=== PATIENT | male | born 2000 | race Hispanic/Latino ===

== ENCOUNTER 2019-11-15 01:10 | Emergency (ER) | payer MEDICAID, SELFPAY ==
[2019-11-15] MEDS ORDERED: IPRATROPIUM BROM 0.5MG/2.5ML ONE (01:29)
[2019-11-15] MEDS ORDERED: ALBUTEROL 2.5 MG/3 ML NEB SOL ONE (01:29)
[2019-11-15] MEDS ORDERED: predniSONE 20 MG TAB ONE (01:44)
--- NOTE | 2019-11-15 02:43 | ER ---
Nurse's Notes [facility] Name: Kole Villela Age: 19 yrs Sex: Male : 2000 Arrival Date: 11/15/2019 Time: 01:12 Bed 19 Private MD: Diagnosis: Unspecified asthma with (acute) exacerbation Presentation: 11/15 01:15 Presenting complaint: Patient states: that he has been having a cough, SOB and wheezing fc x 3 days. Tonight it got really bad. Transition of care: patient was not received from another setting of care. Onset of symptoms was November 12, 2019. Risk Assessment: Do you want to hurt yourself or someone else? Patient reports no desire to harm self or others. Initial Sepsis Screen: Does the patient meet any 2 criteria? No. Patient's initial sepsis screen is negative. Does the patient have a suspected source of infection? No. Patient's initial sepsis screen is negative. Care prior to arrival: None. 01:15 Method Of Arrival: Ambulatory 01:15 Acuity: STEPHANIE 3 Triage Assessment: 01:15 General: Appears distressed, slender, Behavior is calm, cooperative, appropriate for age. Pain: Denies pain. EENT: Reports nasal congestion. Neuro: Level of Consciousness is awake, alert, obeys commands, Oriented to person, place, time, situation, Appropriate for age. Cardiovascular: No deficits noted. Respiratory: Reports shortness of breath cough that is productive, Airway is patent Respiratory effort is even, unlabored, Respiratory pattern is regular, symmetrical, Breath sounds with wheezes bilaterally. Onset: The symptoms/episode began/occurred gradually, the patient has moderate shortness of breath. GI: No deficits noted. : No deficits noted. Derm: Skin is pink, warm \T\ dry. Musculoskeletal: Capillary refill < 3 seconds. Historical: - Allergies: 01:36 Iodine; fc - Home Meds: :36 Unable to obtain [Active]; fc - PMHx: 01:36 Asthma; Bipolar disorder; Anxiety; Eczema; - PSHx: 01:36 None; fc - Immunization history:: Last tetanus immunization: unknown, Flu vaccine is not up to date. - Coronavirus screen:: The patient has NOT traveled to [place] in the past 14 days. Proceed with normal triage process as indicated. The patient has NOT had contact with known/suspected case of Coronavirus? Proceed with normal triage procedures. - Social history:: Smoking status: Patient denies any tobacco usage or history of. Patient uses street drugs, marijuana, Patient/guardian denies using alcohol. - Ebola Screening: : Patient negative for fever greater than or equal to 101.5 degrees Fahrenheit, and additional compatible Ebola Virus Disease symptoms Patient denies exposure to infectious person Patient denies travel to an Ebola-affected area in the 21 days before illness onset. Screenin:15 Abuse screen: Denies threats or abuse. Nutritional screening: No deficits noted. fc Tuberculosis screening: No symptoms or risk factors identified. Fall Risk None identified. Assessment: 01:47 General: Appears in no apparent distress. comfortable, Behavior is calm, cooperative. mg2 Pain: Denies pain. Neuro: Level of Consciousness is awake, alert, obeys commands, Oriented to person, place, time, situation. Cardiovascular: Rhythm is regular. Respiratory: Airway is patent Respiratory effort is even, unlabored, Respiratory pattern is regular, symmetrical, Breath sounds with wheezes bilaterally. in left posterior upper lobe, right posterior upper lobe, left posterior lower lobe, right posterior middle lobe and right posterior lower lobe. GI: No signs and/or symptoms were reported involving the gastrointestinal system. : No signs and/or symptoms were reported regarding the genitourinary system. EENT: No signs and/or symptoms were reported regarding the EENT system. Derm: Skin is intact, is healthy with good turgor, Skin is pink, warm \T\ dry. normal. Musculoskeletal: Circulation, motion, and sensation intact. Capillary refill < 3 seconds. Vital Signs: 01:15 BP 127 / 83; Pulse 74; Resp 20; Temp 98.2(O); Pulse Ox 98% on R/A; Weight 81.65 kg (R); fc Height 5 ft. 3 in. (160.02 cm) (R); Pain 0/10; 02:51 BP 125 / 78; Pulse 85; Resp 18; Temp 98.2; Pulse Ox 100% on R/A; mg2 01:15 Body Mass Index 31.89 (81.65 kg, 160.02 cm) ED Course: 01:12 Patient arrived in ED. ds1 01:15 Arm band placed on Patient placed in an exam room, on a stretcher. fc 01:15 Patient has correct armband on for positive identification. Bed in low position. Call light in reach. Pulse ox on. NIBP on. 01:15 No provider procedures requiring assistance completed. fc 01:16 Carlton Muñiz PA is PHCP. cp 01:16 oNah Rose MD is Attending Physician. cp 01:26 King Dong, RIC is Primary Nurse. mg2 01:29 Triage completed. fc 01:47 Flu and/or RSV swab sent to lab. Patient did not have IV access during this emergency mg2 room visit. 02:22 XRAY Chest Pa And Lat (2 Views) In Process Unspecified. EDMS Administered Medications: 01:26 Drug: Albuterol - atroVENT (3:1) (2.5 mg - 0.5 mg) 3 ml Route: Nebulizer; fc 02:51 Follow up: Response: No adverse reaction; Marked relief of symptoms mg2 01:46 Drug: predniSONE 60 mg Route: PO; mg2 02:51 Follow up: Response: No adverse reaction; Marked relief of symptoms mg2 Outcome: 02:42 Discharge ordered by MD. cp 02:52 Discharged to home ambulatory, with family. mg2 02:52 Condition: stable 02:52 Discharge instructions given to patient, family, Instructed on discharge instructions, follow up and referral plans. medication usage, Demonstrated understanding of instructions, follow-up care, medications, Prescriptions given X 2. 02:52 Patient left the ED. mg2 Signatures: Dispatcher [employer] EDMS Rubi Herbert RN RN Laxmi Tanner ds1 Carlton Muñiz PA PA cp King Dong, RN RN mg2 Corrections: (The following items were deleted from the chart) 01:33 01:32 Albuterol - atroVENT (3:1) (2.5 mg - 0.5 mg) 3 ml Nebulizer mg2 fc
--- NOTE | 2019-11-15 02:44 | EDPHYS ---
Physician Documentation [facility] Name: Kole Villela Age: 19 yrs Sex: Male : 2000 Arrival Date: 11/15/2019 Time: 01:12 Bed 19 Private MD: ED Physician Noah Rose HPI: 11/15 01:35 This 19 yrs old Male presents to ER via Ambulatory with complaints of cp Breathing Difficulty. 01:35 The patient has shortness of breath at rest. Onset: The symptoms/episode began/occurred cp 3 day(s) ago. Duration: The symptoms are continuous, and are steadily getting worse. Associated signs and symptoms: Pertinent positives: productive cough, Pertinent negatives: chest pain, fever, vomiting. Severity of symptoms: in the emergency department the symptoms are unchanged despite home interventions. Historical: - Allergies: 01:36 Iodine; fc - Home Meds: 01:36 Unable to obtain [Active]; fc - PMHx: 01:36 Asthma; Bipolar disorder; Anxiety; Eczema; fc - PSHx: 01:36 None; fc - Immunization history:: Last tetanus immunization: unknown, Flu vaccine is not up to date. - Coronavirus screen:: The patient has NOT traveled to [place] in the past 14 days. Proceed with normal triage process as indicated. The patient has NOT had contact with known/suspected case of Coronavirus? Proceed with normal triage procedures. - Social history:: Smoking status: Patient denies any tobacco usage or history of. Patient uses street drugs, marijuana, Patient/guardian denies using alcohol. - Ebola Screening: : Patient negative for fever greater than or equal to 101.5 degrees Fahrenheit, and additional compatible Ebola Virus Disease symptoms Patient denies exposure to infectious person Patient denies travel to an Ebola-affected area in the 21 days before illness onset. ROS: 01:40 Constitutional: Negative for body aches, chills, fever, poor PO intake. cp 01:40 Eyes: Negative for injury, pain, redness, and discharge. cp 01:40 ENT: Negative for drainage from ear(s), ear pain, sore throat, difficulty swallowing, difficulty handling secretions. 01:40 Respiratory: Positive for cough, with green sputum, shortness of breath, at rest. wheezing. 01:40 Abdomen/GI: Negative for abdominal pain, nausea, vomiting, and diarrhea. 01:40 Back: Negative for radiated pain. 01:40 Skin: Negative for rash. 01:40 Neuro: Negative for altered mental status, headache, weakness. 01:40 All other systems are negative. Exam: 01:45 Constitutional: The patient appears in no acute distress, alert, awake, non-toxic, well cp developed, well nourished. 01:45 Head/Face: Normocephalic, atraumatic. cp 01:45 Eyes: Periorbital structures: appear normal, Conjunctiva: normal, no exudate, no injection, Lids and lashes: appear normal, bilaterally. 01:45 ENT: External ear(s): are unremarkable, Ear canal(s): are normal, clear, TM's: bulging, is not appreciated, bilaterally, erythema, is not appreciated, bilaterally, Nose: is normal, Mouth: Lips: moist, Oral mucosa: pink and intact, moist, Posterior pharynx: is normal, airway is patent, no erythema, no exudate. 01:45 Neck: ROM/movement: is normal, is supple, without pain, no range of motions limitations, no meningismus. 01:45 Chest/axilla: Inspection: normal, Palpation: is normal, no crepitus, no tenderness. 01:45 Cardiovascular: Rate: normal, Rhythm: regular, Edema: is not appreciated, JVD: is not appreciated. 01:45 Respiratory: the patient does not display signs of respiratory distress, Respirations: normal, no use of accessory muscles, no retractions, labored breathing, is not present, Breath sounds: decreased breath sounds, that are mild, diffuse, stridor, is not appreciated, wheezing: that is mild, is heard diffusely. 01:45 Abdomen/GI: Exam negative for discomfort, distension, guarding, Inspection: abdomen appears normal. 01:45 Skin: no rash present. Vital Signs: 01:15 BP 127 / 83; Pulse 74; Resp 20; Temp 98.2(O); Pulse Ox 98% on R/A; Weight 81.65 kg (R); fc Height 5 ft. 3 in. (160.02 cm) (R); Pain 0/10; 02:51 BP 125 / 78; Pulse 85; Resp 18; Temp 98.2; Pulse Ox 100% on R/A; mg2 01:15 Body Mass Index 31.89 (81.65 kg, 160.02 cm) MDM: 01:20 Patient medically screened. 02:33 Data reviewed: vital signs, nurses notes, lab test result(s), radiologic studies, plain cp films. Test interpretation: by ED physician or midlevel provider: plain radiologic studies, chest xray negative for infiltrates. 11/15 01:31 Order name: Influenza Screen (a \T\ B) cp 11/15 01:31 Order name: XRAY Chest Pa And Lat (2 Views) cp Administered Medications: Drug: Albuterol - atroVENT (3:1) (2.5 mg - 0.5 mg) 3 ml Route: Nebulizer; 02:51 Follow up: Response: No adverse reaction; Marked relief of symptoms mg2 01:46 Drug: predniSONE 60 mg Route: PO; mg2 02:51 Follow up: Response: No adverse reaction; Marked relief of symptoms mg2 Disposition: 03:32 Co-signature as Attending Physician, Noah Rose MD. rn Disposition: 11/15/19 02:42 Discharged to Home. Impression: Unspecified asthma with (acute) exacerbation. - Condition is Stable. - Discharge Instructions: Asthma, Adult, How to Use an Inhaler. - Prescriptions for Prednisone 20 mg Oral Tablet - take 2 tablet by ORAL route once daily for 5 days; 10 tablet. Albuterol Sulfate 90 mcg/actuation - inhale 1-2 puff by INHALATION route every 4-6 hours; 1 Inhaler. - Medication Reconciliation Form, Thank You Letter, Antibiotic Education, Prescription Opioid Use form. - Follow up: Private Physician; When: 1 - 2 days; Reason: Recheck today's complaints. - Problem is an acute exacerbation. - Symptoms have improved. Signatures: Dispatcher [employer] EDRubi Mann RN RN Noah Rose MD MD rn Page, Corey, PA PA cp Gardose, Michele, RN RN mg2 Corrections: (The following items were deleted from the chart) 02:52 02:42 11/15/2019 02:42 Discharged to Home. Impression: Unspecified asthma with (acute) mg2 exacerbation. Condition is Stable. Forms are Medication Reconciliation Form, Thank You Letter, Antibiotic Education, Prescription Opioid Use. Follow up: Private Physician; When: 1 - 2 days; Reason: Recheck today's complaints. Problem is an acute exacerbation. Symptoms have improved. cp
[2019-11-15 04:57] VITALS: TEMP 98.2
[2019-11-15 04:59] VITALS: BP 125/78; O2SAT 100
--- NOTE | 2019-11-15 07:49 | RAD REPORT ---
EXAM DESCRIPTION: RAD - Chest Pa And Lat (2 Views) - 11/15/2019 2:22 am CLINICAL HISTORY: Cough;SOB COMPARISON: CHEST PA AND LAT 2 VIEW dated 08/02/2013; CHEST PA AND LAT 2 VIEW dated 01/05/2010 TECHNIQUE: Frontal and lateral views of the chest were obtained. FINDINGS: The lungs are clear of a focal mass or consolidation. Interstitial pattern is not substant ially different from comparison. A mild edema or infiltrate is potentially masked by the baseline pat tern. Heart size is normal and central vasculature is within normal limits. No pleural effusion or pneumothorax seen. No acute bony finding noted. No aortic abnormality. IMPRESSION: No focal mass or consolidation. Minimal edema or infiltrate can be masked by the baseline pattern.
== END 2019-11-15 02:52 | disposition home or self-care (01) ==
LOC: ER 01:10
DX: J45.901 Unspecified asthma with (acute) exacerbation (principal); Z91.048 Other nonmedicinal substance allergy status
CPT/HCPCS: 71046; 87804; 94640; 99284; J7512

== ENCOUNTER 2021-02-25 12:16 | Emergency (ER) | payer SELFPAY ==
[2021-02-25] MEDS ORDERED: ALBUTEROL 2.5 MG/3 ML NEB SOL ONE (13:07)
[2021-02-25] MEDS ORDERED: IPRATROPIUM BROM 0.5MG/2.5ML ONE (13:07)
[2021-02-25] MEDS ORDERED: KETOROLAC 30 MG/ML INJ ONE (13:07)
[2021-02-25] MEDS ORDERED: METHYLPREDNISOLONE 125 MG INJ ONE (13:07)
[2021-02-25 13:11] LABS: Absolute Lymphocytes (CBC) 1.8 K/uL (0.7-4.9); Basophils % 0.5 % (0-1.3); Hematocrit 44.9 % (39.6-49.0); Lymphocytes % 16.5 % (15.3-44.8); MPV 9.2 fL (7.6-11.3); RBC Red Blood Cell Count 5.47 M/uL (4.33-5.43)
[2021-02-25 13:33] LABS: ALT/SGPT 32 U/L (12-78); AST/SGOT 30 U/L (15-37); Albumin 4.2 g/dL (3.4-5.0); Alkaline Phosphatase 128 U/L (45-117); BUN Blood Urea Nitrogen 18 mg/dL (7-18); Bicarbonate 25 mmol/L (21-32); Bilirubin Direct 0.1 mg/dL (0-0.2); Bilirubin Total 0.4 mg/dL (0.2-1.0); Glucose Level 85 mg/dL (74-106); Potassium 3.9 mmol/L (3.5-5.1); Protein, Total 8.5 g/dL (6.4-8.2); Sodium Level 135 mmol/L (136-145); Troponin (Emerg Dept Use Only) < 0.02 ng/mL (0.0-0.045)
--- NOTE | 2021-02-25 13:37 | RAD REPORT ---
EXAM DESCRIPTION: Angela Warner (2 Views)02/25/2021 1:11 pm CLINICAL HISTORY: Chest pain COMPARISON: 2019 FINDINGS: The lungs appear clear of acute infiltrate. The heart is normal size IMPRESSION: No acute abnormalities displayed
--- NOTE | 2021-02-25 15:15 | EDPHYS ---
Physician Documentation [facility] Name: Kole Villela Age: 20 yrs Sex: Male : 2000 Arrival Date: 02/25/2021 Time: 12:16 Bed 28 Private MD: Faby Corbett C ED Physician Noah Rose HPI: 02/25 12:59 This 20 yrs old Male presents to ER via Ambulatory with complaints of Chest pm1 Pressure, Syncope. 12:59 The patient or guardian reports chest pain that is located primarily in the left pm1 lateral posterior chest and left breast. The pain does not radiate. Associated signs and symptoms: Pertinent positives: shortness of breath, Wheezing, Pertinent negatives: headache. The chest pain is described as sharp. Duration: The patient or guardian reports a single episode, that is still ongoing. Modifying factors: The symptoms are alleviated by breathing treatments. the symptoms are aggravated by deep breath. Severity of pain: in the emergency department the pain is unchanged. The patient has not experienced similar symptoms in the past. The patient has not recently seen a physician. Historical: - Allergies: 12:38 Iodine; ph - PMHx: 12:38 Anxiety; Asthma; Bipolar disorder; eczema; ph - PSHx: 12:38 None; ph - Immunization history:: Client reports having NOT received the Covid vaccine. - Social history:: Smoking status: Reported history of juuling and/or vaping. ROS: 12:59 Constitutional: Negative for fever, chills, and weight loss, Eyes: Negative for injury, pm1 pain, redness, and discharge, ENT: Negative for injury, pain, and discharge, Neck: Negative for injury, pain, and swelling. 12:59 Abdomen/GI: Negative for abdominal pain, nausea, vomiting, diarrhea, and constipation, Back: Negative for injury and pain, MS/Extremity: Negative for injury and deformity, Skin: Negative for injury, rash, and discoloration. 12:59 Cardiovascular: Positive for chest pain, of the left breast and left lateral posterior chest, Negative for edema, palpitations. 12:59 Respiratory: Positive for shortness of breath, wheezing, Negative for cough. 12:59 Neuro: Positive for near syncope, Negative for dizziness, headache, numbness, tingling, weakness. Exam: 12:59 Constitutional: This is a well developed, well nourished patient who is awake, alert, pm1 and in no acute distress. Head/Face: Normocephalic, atraumatic. 12:59 Back: No spinal tenderness. No costovertebral tenderness. Full range of motion. Skin: Warm, dry with normal turgor. Normal color with no rashes, no lesions, and no evidence of cellulitis. MS/ Extremity: Pulses equal, no cyanosis. Neurovascular intact. Full, normal range of motion. 12:59 Eyes: Exam is negative for acute changes, Extraocular movements: no acute changes, Sclera: no acute changes, icterus, is not appreciated. 12:59 ENT: Mouth: Lips: normal, Oral mucosa: normal, pink and intact, moist. 12:59 Chest/axilla: Inspection: normal, Palpation: tenderness, that is mild, of the left lateral posterior chest and left breast, that totally reproduces the patient's complaints. 12:59 Cardiovascular: Rate: normal, Rhythm: regular, Pulses: no pulse deficits are appreciated. 12:59 Respiratory: the patient does not display signs of respiratory distress, Breath sounds: wheezing: expiratory that is mild, is heard diffusely. 12:59 Abdomen/GI: Inspection: abdomen appears normal, Palpation: abdomen is soft and non-tender, in all quadrants. 12:59 Neuro: Exam negative for acute changes, Orientation: is normal, Mentation: is normal, Motor: is normal, moves all fours. Vital Signs: 12:33 BP 127 / 86; Pulse 95; Resp 20; Temp 97.7; Pulse Ox 97% on R/A; Weight 89.81 kg; Height ph 5 ft. 11 in. (180.34 cm); Pain 7/10; 13:27 BP 122 / 74; Pulse 84; Resp 17; Pulse Ox 99% on R/A; ap3 14:09 BP 125 / 92; Pulse 89; Pulse Ox 100% on R/A; ap3 15:13 BP 122 / 72; Pulse 86; Resp 16; Pulse Ox 98% on R/A; Pain 0/10; ap3 12:33 Body Mass Index 27.62 (89.81 kg, 180.34 cm) ph MDM: 12:34 Patient medically screened. pm1 15:14 Data reviewed: vital signs. Data interpreted: Pulse oximetry: on room air is 98 %. pm1 Interpretation: normal. Counseling: I had a detailed discussion with the patient and/or guardian regarding: the historical points, exam findings, and any diagnostic results supporting the discharge/admit diagnosis, lab results, radiology results, the need for outpatient follow up, to return to the emergency department if symptoms worsen or persist or if there are any questions or concerns that arise at home. 02/25 12:37 Order name: Basic Metabolic Panel; Complete Time: 13:46 pm1 02/25 12:37 Order name: CBC with Diff; Complete Time: 13:27 pm02/25 12:37 Order name: Chest Pa And Lat (2 Views) XRAY; Complete Time: 13:46 pm1 02/25 12:37 Order name: LFT's; Complete Time: 13:46 pm02/25 12:37 Order name: Troponin (emerg Dept Use Only); Complete Time: 13:46 pm1 02/25 12:37 Order name: Cardiac monitoring; Complete Time: 12:43 pm02/25 12:37 Order name: EKG; Complete Time: 12:38 pm02/25 12:37 Order name: EKG - Nurse/Tech; Complete Time: 12:43 pm1 02/25 12:37 Order name: IV Saline Lock; Complete Time: 13:02 pm02/25 12:37 Order name: Labs collected and sent; Complete Time: 13:02 pm08 12:37 Order name: O2 Per Protocol; Complete Time: 12:42 pm02/25 12:37 Order name: O2 Sat Monitoring; Complete Time: 12:42 pm1 Administered Medications: 13:02 Drug: SOLU-Medrol (methylPrednisoLONE) 125 mg Route: IVP; Site: left antecubital; ap3 15:13 Follow up: Response: No adverse reaction ap3 13:02 Drug: Albuterol - atroVENT (ipratropium) (3:1) (2.5 mg - 0.5 mg) 3 ml Route: Nebulizer; ap3 15:12 Follow up: Response: No adverse reaction ap3 13:02 Drug: TORadol (ketorolac) 30 mg Route: IVP; Site: left antecubital; ap3 15:12 Follow up: Response: No adverse reaction; Pain is decreased ap3 15:12 Drug: NS 0.9% 1000 ml Route: IV; Rate: 1000 ml; Site: left antecubital; ap3 15:48 Follow up: Response: No adverse reaction; IV Status: Completed infusion; IV Intake: ap3 1000ml Disposition: 18:11 Co-signature as Attending Physician, Noah Rose MD. rn Disposition: 02/25/21 15:15 Discharged to Home. Impression: Chest pain, unspecified, Asthma. - Condition is Stable. - Discharge Instructions: Asthma, Adult, Nonspecific Chest Pain. - Prescriptions for Naprosyn 500 mg Oral Tablet - take 1 tablet by ORAL route 2 times per day As needed take with food; 30 tablet. Medrol (Ruben) 4 mg Oral Tablets, Dose Pack - take 1 tablet by ORAL route as directed - follow package instructions; 1 packet. - Medication Reconciliation Form, Thank You Letter, Antibiotic Education, Prescription Opioid Use, Work release form form. - Follow up: Emergency Department; When: As needed; Reason: Worsening of condition. Follow up: Private Physician; When: 2 - 3 days; Reason: Recheck today's complaints, Continuance of care, Re-evaluation by your physician. - Problem is new. - Symptoms have improved. Signatures: Dispatcher [employer] EDNoah Lopez MD MD rn Hall, Patricia, RN RN ph Marinas, Patrick, NP [employer] pm1 Gracie Godinez RN RN ap3 Corrections: (The following items were deleted from the chart) 15:32 15:15 02/25/2021 15:15 Discharged to Home. Impression: Chest pain, unspecified. pm1 Condition is Stable. Forms are Medication Reconciliation Form, Thank You Letter, Antibiotic Education, Prescription Opioid Use. Follow up: Emergency Department; When: As needed; Reason: Worsening of condition. Follow up: Private Physician; When: 2 - 3 days; Reason: Recheck today's complaints, Continuance of care, Re-evaluation by your physician. Problem is new. Symptoms have improved. pm1 15:47 15:32 02/25/2021 15:15 Discharged to Home. Impression: Chest pain, unspecified; Asthma. ap3 Condition is Stable. Discharge Instructions: Nonspecific Chest Pain, Asthma, Adult. Prescriptions for Naprosyn 500 mg Oral Tablet - take 1 tablet by ORAL route 2 times per day As needed take with food; 30 tablet, Medrol (Ruben) 4 mg Oral Tablets, Dose Pack - take 1 tablet by ORAL route as directed - follow package instructions; 1 packet. and Forms are Medication Reconciliation Form, Thank You Letter, Antibiotic Education, Prescription Opioid Use. Follow up: Emergency Department; When: As needed; Reason: Worsening of condition. Follow up: Private Physician; When: 2 - 3 days; Reason: Recheck today's complaints, Continuance of care, Re-evaluation by your physician. Problem is new. Symptoms have improved. pm1
--- NOTE | 2021-02-25 15:15 | ER ---
Nurse's Notes [facility] Name: Kole Villela Age: 20 yrs Sex: Male : 2000 Arrival Date: 02/25/2021 Time: 12:16 Bed 28 Private MD: Faby Corbett C Diagnosis: Chest pain, unspecified;Asthma Presentation: 02/25 12:33 Chief complaint: Patient states: SOB this morning, hx of asthma, used inhaler and ph symptoms improved, works outdoors and while working today experienced mid-sternal chest pain that radiates to L rib area w/ respiration. States, " While I was at work I got dizzy and almost passed out because the pain was so sharp." Denies N/V or fever. Coronavirus screen: shortness of breath. Ebola Screen: No symptoms or risks identified at this time. Initial Sepsis Screen: Does the patient meet any 2 criteria? No. Patient's initial sepsis screen is negative. Does the patient have a suspected source of infection? No. Patient's initial sepsis screen is negative. Risk Assessment: Do you want to hurt yourself or someone else? Patient reports no desire to harm self or others. Onset of symptoms was February 25, 2021. 12:33 Method Of Arrival: Ambulatory ph 12:33 Acuity: STEPHANIE 3 ph Historical: - Allergies: 12:38 Iodine; ph - PMHx: 12:38 Anxiety; Asthma; Bipolar disorder; eczema; ph - PSHx: 12:38 None; ph - Immunization history:: Client reports having NOT received the Covid vaccine. - Social history:: Smoking status: Reported history of juuling and/or vaping. Screenin:04 Abuse screen: Denies threats or abuse. Nutritional screening: No deficits noted. ap3 Tuberculosis screening: No symptoms or risk factors identified. Fall Risk None identified. Assessment: 13:03 General: Appears in no apparent distress. comfortable, Behavior is calm, cooperative, ap3 appropriate for age. Pain: Complains of pain in mid-sternal area Pain does not radiate. Pain currently is 4 out of 10 on a pain scale. Pain began 2-3 days ago. Neuro: Level of Consciousness is awake, alert, obeys commands, Oriented to person, place, time, situation. Cardiovascular: Reports chest pain, Capillary refill < 3 seconds. Respiratory: Airway is patent Respiratory effort is even, unlabored, Respiratory pattern is regular, symmetrical, Breath sounds are clear bilaterally. GI: No signs and/or symptoms were reported involving the gastrointestinal system. : No signs and/or symptoms were reported regarding the genitourinary system. Vital Signs: 12:33 BP 127 / 86; Pulse 95; Resp 20; Temp 97.7; Pulse Ox 97% on R/A; Weight 89.81 kg; Height ph 5 ft. 11 in. (180.34 cm); Pain 7/10; 13:27 BP 122 / 74; Pulse 84; Resp 17; Pulse Ox 99% on R/A; ap3 14:09 BP 125 / 92; Pulse 89; Pulse Ox 100% on R/A; ap3 15:13 BP 122 / 72; Pulse 86; Resp 16; Pulse Ox 98% on R/A; Pain 0/10; ap3 12:33 Body Mass Index 27.62 (89.81 kg, 180.34 cm) ph ED Course: 12:16 Patient arrived in ED. am2 12:17 Faby Corbett FNP is Private Physician. am2 12:25 Raulito Romero NP is PHCP. pm1 12:25 Noah Rose MD is Attending Physician. pm1 12:30 Arm band placed on Patient placed in an exam room, on a stretcher. ll1 12:36 Gracie Godinez, RIC is Primary Nurse. ap3 12:38 Triage completed. ph 12:55 Inserted saline lock: 20 gauge in left antecubital area, using aseptic technique. Blood ap3 collected. 13:04 Patient has correct armband on for positive identification. Bed in low position. Call ap3 light in reach. Side rails up X 1. Adult w/ patient. environmental monitoring specialist on. Pulse ox on. NIBP on. Door closed. Noise minimized. 13:04 Patient maintains SpO2 saturation greater than 95% on room air. ap3 13:11 Chest Pa And Lat (2 Views) XRAY In Process Unspecified. EDMS 15:45 No provider procedures requiring assistance completed. IV discontinued, intact, ap3 bleeding controlled, No redness/swelling at site. Pressure dressing applied. Administered Medications: 13:02 Drug: SOLU-Medrol (methylPrednisoLONE) 125 mg Route: IVP; Site: left antecubital; ap3 15:13 Follow up: Response: No adverse reaction ap3 13:02 Drug: Albuterol - atroVENT (ipratropium) (3:1) (2.5 mg - 0.5 mg) 3 ml Route: Nebulizer; ap3 15:12 Follow up: Response: No adverse reaction ap3 13:02 Drug: TORadol (ketorolac) 30 mg Route: IVP; Site: left antecubital; ap3 15:12 Follow up: Response: No adverse reaction; Pain is decreased ap3 15:12 Drug: NS 0.9% 1000 ml Route: IV; Rate: 1000 ml; Site: left antecubital; ap3 15:48 Follow up: Response: No adverse reaction; IV Status: Completed infusion; IV Intake: ap3 1000ml Intake: 15:48 IV: 1000ml; Total: 1000ml. ap3 Outcome: 15:15 Discharge ordered by MD. pm1 15:46 Discharged to home ambulatory, with family. ap3 15:46 Condition: good 15:46 Discharge instructions given to patient, family, Instructed on discharge instructions, follow up and referral plans. no drinking with medication, medication usage, Demonstrated understanding of instructions, follow-up care, medications, Prescriptions given X 2. 15:47 Patient left the ED. ap3 Signatures: Dispatcher [employer] Rossana Harman RN Raulito Thorpe ph, NP REGULATORY SPECIALIST pm1 Gracie Hawkins amGracie Marrufo RN RN ap3 Hal Gonzáles RN RN ll1
[2021-02-25 16:08] VITALS: TEMP 97.7
[2021-02-25 16:13] VITALS: BP 122/72; O2SAT 98
--- NOTE | 2021-02-26 07:27 | EKG ---
Test Date: 2021-02-25 Test Time: 12:42:12 Publishing Manager: BILLY MEASUREMENT RESULTS: Intervals: Rate: 83 DE: 124 QRSD: 78 QT: 356 QTc: 418 [place]: P: 61 DE: 124 QRS: 39 T: 7 INTERPRETIVE STATEMENTS: Normal sinus rhythm Normal ECG No previous ECG available for comparison Electronically Signed On 02-26-21 07:26:28 CDT by Shahzad De Leon
== END 2021-02-25 15:47 | disposition home or self-care (01) ==
LOC: ER 12:16
DX: J45.909 Unspecified asthma, uncomplicated (principal); R55 Syncope and collapse; Z91.048 Other nonmedicinal substance allergy status
CPT/HCPCS: 36415; 71046; 80048; 80076; 84484; 85025; 93005; 96361; 96374; 96375; 99285; J2930

== ENCOUNTER 2024-01-08 08:40 | Emergency (ER) | payer SELFPAY ==
[2024-01-08] MEDS ORDERED: KETOROLAC 30 MG/ML INJ ONE (08:58)
--- NOTE | 2024-01-08 10:38 | RAD REPORT ---
EXAM DESCRIPTION: Shoulder Right 2 View - 01/08/2024 9:27 am CLINICAL HISTORY: PAIN COMPARISON: No comparisons TECHNIQUE: Internal and external rotation views of the right shoulder were obtained. FINDINGS: There is no fracture or dislocation. AC joint is normal in appearance. No acute or suspici ous findings. IMPRESSION: Negative two-view right shoulder examination.
--- NOTE | 2024-01-08 10:50 | ER ---
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 Coronavirus screen: Client denies travel out of the [place] in the last 14 days. At this time, the client does not indicate any symptoms associated with coronavirus-19. Ebola Screen: Patient denies travel to an Ebola-affected area in the 21 days before illness onset. Initial Sepsis Screen: Does the patient meet any 2 criteria? No. Patient's initial sepsis screen is negative. Does the patient have a suspected source of infection? No. Patient's initial sepsis screen is negative. Risk Assessment: Do you want to hurt yourself or someone else? Patient reports no desire to harm self or others. Onset of symptoms was January 07, 2024. 08:46 Method Of Arrival: Ambulatory [facility] 08:46 Acuity: STEPHANIE 4 [facility] 09:03 Care prior to arrival: None. [facility] 09:04 Mechanism of Injury: No Mechanism of Injury. Trauma event details: Injury occurred in [address] Triage Assessment: 08:51 General: Appears uncomfortable, Behavior is calm, cooperative, appropriate for age. [facility] Pain: Complains of pain in R shoulder Pain Quality of pain is described as aching, throbbing. Musculoskeletal: Circulation, motion, and sensation intact. Capillary refill < 3 seconds, painful ROM Reports pain in R shoulder. Trauma Activation: Not Applicable Physician: ED Physician; Name: ; Notified At: ; Arrived At: Physician: General Surgeon; Name: ; Notified At: ; Arrived At: Physician: Radiology; Name: ; Notified At: ; Arrived At: Physician: Respiratory; Name: ; Notified At: ; Arrived At: Physician: Lab; Name: ; Notified At: ; Arrived At: Historical: - Allergies: 08:45 Iodine; ll1 - Home Meds: 08:45 ProAir RespiClick inhalation [Active]; ll1 - PMHx: 08:45 Anxiety; Asthma; Bipolar disorder; eczema; ll1 - PSHx: 08:45 None; ll1 - Immunization history:: Adult Immunizations up to date. - Infectious Disease History:: Denies. - Immunization history: Last tetanus immunization: - up to date. - Social history:: Smoking status: Patient denies any tobacco usage or history of. - Family history:: not pertinent. Screenin:02 [facility] ED Fall Risk Assessment (Adult) History of falling in the last 3 months, ll1 including since admission No falls in past 3 months (0 pts) Confusion or Disorientation No (0 pts) Intoxicated or Sedated No (0 pts) Impaired Gait No (0 pts) Mobility Assist Device Used No (0 pt) Altered Elimination No (0 pt) Score/Fall Risk Level 0 - 2 = Low Risk Maintained a safe environment, Hourly rounding (assess needs \T\ fall precautionary measures) done. Abuse screen: Denies threats or abuse. Nutritional screening: No deficits noted. Tuberculosis screening: No symptoms or risk factors identified. Primary Survey: 09:02 NO uncontrolled hemorrhage observed. A: The client is awake and alert. The airway is ll1 patent. Breathing/Chest: Spontaneous respiratory effort, equal unlabored respirations, breath sounds clear bilaterally, regular pattern, symmetrical chest rise and fall. Circulation: No external hemorrhage present. Regular and strong central pulse, skin warm/dry/normal color. Disability Client is alert. Exposure/Environment: There is no evidence of uncontrolled external bleeding. 11:00 Reassessment Breathing: Spontaneous respiratory effort, equal unlabored respirations, ll1 breath sounds clear bilaterally, regular pattern with symmetrical chest rise and fall. Assessment: 09:01 Reassessment: No changes from previously documented assessment. Patient and/or family ll1 updated on plan of care and expected duration. Pain level reassessed. Patient is alert, oriented x 3, equal unlabored respirations, skin warm/dry/pink. 10:58 Reassessment: No changes from previously documented assessment. Patient and/or family ll1 updated on plan of care and expected duration. Pain level reassessed. Patient is alert, oriented x 3, equal unlabored respirations, skin warm/dry/pink. Patient states feeling better. Vital Signs: 08:46 BP 133 / 91; Pulse 82; Resp 17; Temp 97.9; Pulse Ox 100% ; Height 5 ft. 11 in. ; Pain ll1 9/10; 10:58 BP 128 / 90; Pulse 66; Resp 16; Pulse Ox 100% ; Pain 5/10; ll1 08:46 Pain Scale: Adult ll1 10:58 Pain Scale: Adult ll1 [place] Coma Score: 09:02 Eye Response: spontaneous(4). Motor Response: obeys commands(6). Verbal Response: ll1 oriented(5). Total: 15. Trauma Score (Adult): 09:02 Eye Response: spontaneous(1); Verbal Response: oriented(1); Motor Response: obeys ll1 commands(2); Systolic BP: > 89 mm Hg(4); Respiratory Rate: 10 to 29 per min(4); Thom Score: 15; Trauma Score: 12 ED Course: 08:44 Patient arrived in ED. ra3 08:49 Triage completed. ll1 08:49 Arm band placed on Patient placed in an exam room, on a stretcher. ll1 08:51 Satya Driscoll MD is Attending Physician. rt 08:56 Hal Gonzáles RN is Primary Nurse. ll1 09:03 Patient has correct armband on for positive identification. Bed in low position. Call ll1 light in reach. Provided Education on: ER procedure and process. Cardiac monitoring not applicable on this patient. 09:03 O2 via n/a. Room air. ll1 09:04 Thermoregulation: n/a. ll1 09:29 Shoulder Right (2 View) XRAY In Process Unspecified. EDMS 11:00 No provider procedures requiring assistance completed. Patient did not have IV access ll1 during this emergency room visit. Administered Medications: 09:02 Drug: Ketorolac IM 15 mg IM once Route: IM; Site: right deltoid; ll1 10:57 Follow up: Response: No adverse reaction; Pain is decreased; RASS: Alert and Calm (0) ll1 Medication: 09:04 VIS not applicable for this client. ll1 Intake: 09:05 PO: 0ml; Total: 0ml. ll1 Output: 09:05 Urine: 0ml; Total: 0ml. ll1 Outcome: 09:05 Patient's length of stay was not longer than 2 hours. ll1 10:50 Discharge ordered by . rt 11:00 Discharged to home ambulatory, ll1 11:00 Condition: stable 11:00 Discharge instructions given to patient, Instructed on discharge instructions, follow up and referral plans. Demonstrated understanding of instructions, follow-up care, 11:06 Patient left the ED. ll1 Signatures: Dispatcher [employer] Hal Mireles RN RN ll1 Satya Driscoll MD MD rt Jojo Ronquillo ra3
--- NOTE | 2024-01-08 10:50 | EDPHYS ---
Physician Documentation [facility] Name: Kole Villela Age: 23 yrs Sex: Male : 2000 Arrival Date: 01/08/2024 Time: 08:40 Bed 11 Private MD: ED Physician Satya Driscoll HPI: 01/07 09:20 This 23 yrs old Male presents to ER via Ambulatory with complaints of Fall rt Injury, Shoulder Injury. 09:20 Patient presents to the ED with an injury to the right shoulder. The patient states rt that he dropped a bundle of janes to avoid falling off a ladder, at that time, he felt a pop in his shoulder. Took some ibuprofen that did not help the pain. He denies other injuries, other acute complaints, symptoms are moderate in severity, aching nature, nonradiating, no other aggravating or alleviating factors.. Historical: - Allergies: 08:45 Iodine; ll1 - Home Meds: 08:45 ProAir RespiClick inhalation [Active]; ll1 - PMHx: 08:45 Anxiety; Asthma; Bipolar disorder; eczema; ll1 - PSHx: 08:45 None; ll1 - Immunization history:: Adult Immunizations up to date. - Infectious Disease History:: Denies. - Immunization history: Last tetanus immunization: - up to date. - Social history:: Smoking status: Patient denies any tobacco usage or history of. - Family history:: not pertinent. ROS: 09:20 Constitutional: Negative for fever, chills, and weight loss, Cardiovascular: Negative rt for chest pain, palpitations, and edema, Respiratory: Negative for shortness of breath, cough, wheezing, and pleuritic chest pain, Abdomen/GI: Negative for abdominal pain, nausea, vomiting, diarrhea, and constipation, Skin: Negative for injury, rash, and discoloration, Neuro: Negative for headache, weakness, numbness, tingling, and seizure, 09:20 MS/extremity: Positive for pain, Negative for deformity, Exam: 09:20 Constitutional: This is a well developed, well nourished patient who is awake, alert, rt and in no acute distress. Head/Face: Normocephalic, atraumatic. Chest/axilla: Normal chest wall appearance and motion. Nontender with no deformity. No lesions are appreciated. Cardiovascular: Regular rate and rhythm with a normal S1 and S2. No gallops, murmurs, or rubs. Normal PMI, no JVD. No pulse deficits. Respiratory: Lungs have equal breath sounds bilaterally, clear to auscultation and percussion. No rales, rhonchi or wheezes noted. No increased work of breathing, no retractions or nasal flaring. Abdomen/GI: Soft, non-tender, with normal bowel sounds. No distension or tympany. No guarding or rebound. No evidence of tenderness throughout. Skin: Warm, dry with normal turgor. Normal color with no rashes, no lesions, and no evidence of cellulitis. Neuro: Awake and alert, GCS 15, oriented to person, place, time, and situation. Cranial nerves II-XII grossly intact. Motor strength 5/5 in all extremities. Sensory grossly intact. Cerebellar exam normal. Normal gait. 09:20 Musculoskeletal/extremity: Tenderness diffusely to right shoulder, range of motion limited due to pain, no deformities. No signs of biceps tendon rupture. Pulses, motor, sensation intact. Vital Signs: 08:46 BP 133 / 91; Pulse 82; Resp 17; Temp 97.9; Pulse Ox 100% ; Height 5 ft. 11 in. ; Pain ll1 9/10; 10:58 BP 128 / 90; Pulse 66; Resp 16; Pulse Ox 100% ; Pain 5/10; ll1 08:46 Pain Scale: Adult ll1 10:58 Pain Scale: Adult ll1 Thom Coma Score: 09:02 Eye Response: spontaneous(4). Motor Response: obeys commands(6). Verbal Response: ll1 oriented(5). Total: 15. Trauma Score (Adult): 09:02 Eye Response: spontaneous(1); Verbal Response: oriented(1); Motor Response: obeys ll1 commands(2); Systolic BP: > 89 mm Hg(4); Respiratory Rate: 10 to 29 per min(4); Thom Score: 15; Trauma Score: 12 MDM: 08:51 Patient medically screened. rt 11:23 Differential diagnosis: Fracture, dislocation, tendon, soft tissue injury. Data rt reviewed: vital signs, nurses notes, radiologic studies. Independent interpretation of the following test(s) in the Emergency Department X-Ray: My interpretation is No fracture, dislocation seen on interpretation of x-ray images. Counseling: I had a detailed discussion with the patient and/or guardian regarding the historical points, exam findings, and any diagnostic results supporting the discharge/admit diagnosis, radiology results, the need for outpatient follow up, Discussed with patient that negative x-ray does not rule out ligamentous or soft tissue injury. Instructed to follow-up as an outpatient.. Response to treatment: the patient's symptoms have mildly improved after treatment. 01/07 08:56 Order name: Shoulder Right (2 View) XRAY; Complete Time: 10:40 rt Administered Medications: 09:02 Drug: Ketorolac IM 15 mg IM once Route: IM; Site: right deltoid; ll1 10:57 Follow up: Response: No adverse reaction; Pain is decreased; RASS: Alert and Calm (0) ll1 Disposition Summary: 01/08/24 10:50 Discharge Ordered Notes: Location: Home rt Problem: new rt Symptoms: have improved rt Condition: Stable rt Diagnosis - Pain in right shoulder rt Followup: rt - With: Private Physician - When: 5 - 6 days - Reason: Discharge Instructions: - Discharge Summary Sheet rt - Shoulder Pain rt Forms: - Work release form ll1 - Medication Reconciliation Form rt - Thank You Letter rt - Antibiotic Education rt - Prescription Opioid Use rt - Patient Portal Instructions rt - Leadership Thank You Letter rt Signatures: Dispatcher [employer] Hal Mireles, RIC RN ll1 Satya Driscoll MD MD rt
[2024-01-08 11:37] VITALS: BP 128/90; TEMP 97.9; O2SAT 100
== END 2024-01-08 11:06 | disposition home or self-care (01) ==
LOC: ER 08:40
DX: M25.511 Pain in right shoulder (principal)
CPT/HCPCS: 96372; 99285

== ENCOUNTER 2024-07-22 14:55 | Emergency (ER) | payer SELFPAY ==
[2024-07-22] MEDS ORDERED: METHYLPREDNISOLONE 125 MG INJ ONE (15:10)
[2024-07-22] MEDS ORDERED: ALBUTEROL 2.5 MG/3 ML NEB SOL ONE (15:10)
[2024-07-22] MEDS ORDERED: Magnesium Sulfate 2gm IVPB 2 G/50 ML BAG IV ONE (15:11)
[2024-07-22] MEDS ORDERED: IPRATROPIUM BROM 0.5MG/2.5ML ONE (15:11)
[2024-07-22 15:27] LABS: Absolute Basophils 0.1 K/uL (0-0.5); Absolute Eosinophils 1.3 K/uL (0-0.5); Absolute Lymphocytes (CBC) 2.6 K/uL (0.7-4.9); Absolute Monocytes 0.6 K/uL (0.1-1.3); Absolute Neutrophil 5.3 K/uL (1.8-8.0); Eosinophils % 12.8 % (0-4.4); Hematocrit 45.3 % (39.6-49.0); Hemoglobin 14.9 g/dL (13.6-17.9); Lymphocytes % 26.8 % (15.3-44.8); MCH 27.6 pg (27.0-35.0); MCHC 32.8 g/dL (32.0-36.0); MCV 84.1 fL (80-100); MPV 8.8 fL (7.6-11.3); Monocytes % 5.9 % (3.3-12.3); Neutrophils % 53.5 % (41.7-73.7); Platelets 255 thou/uL (152-406); RBC Red Blood Cell Count 5.39 M/uL (4.33-5.43); Red Cell Distribution Width 15.2 % (12.1-15.2)
--- NOTE | 2024-07-22 15:32 | RAD REPORT ---
EXAMINATION: ONE VIEW CHEST XR CLINICAL INDICATION: asthma TECHNIQUE: Frontal chest projection is submitted. Examination is limited by patient positioning and t echnique. COMPARISON: 02/25/2021 FINDINGS: Nonspecific peribronchial thickening without focal consolidation could represent a viral process or r eactive airway disease. The heart is normal in size. No displaced fractures identified. IMPRESSION: Nonspecific peribronchial thickening without focal consolidation could represent a viral process or r eactive airway disease.
[2024-07-22 15:42] LABS: Anion Gap 6.7 mEq/L (5.0-15.0); Potassium 3.7 mEq/L (3.5-5.1)
[2024-07-22 15:53] LABS: SARS-CoV-2 Antigen CONTROL BLUE LINE VIS/BG OK; SARS-CoV-2 Antigen Rapid Res Negative (Negative)
--- NOTE | 2024-07-22 15:55 | EDPHYS ---
Physician Documentation [facility] Name: Kole Villela Age: 23 yrs Sex: Male : 2000 Arrival Date: 07/22/2024 Time: 14:55 Bed 7 Private MD: ED Physician Yonny Lenz HPI: 07/22 15:48 This 23 yrs old Male presents to ER via Ambulatory with complaints of Asthma ec2 Exacerbation. 15:48 Patient arrives today for evaluation of worsening shortness of breath. History of ec2 asthma, has not had his asthma medications in several weeks. No fevers or chills, no nausea or vomiting. . Historical: - Allergies: 15:01 Iodine; iw - Home Meds: 15:04 ProAir RespiClick inhalation [Active]; mb9 - PMHx: 15:01 Anxiety; Asthma; Bipolar disorder; eczema; iw - PSHx: 15:04 None; mb9 - Immunization history:: Adult Immunizations not up to date. - Infectious Disease History:: Denies. - Social history:: Smoking status: Reported history of juuling and/or vaping. ROS: 15:48 Constitutional: as per hpi ec2 Exam: 15:48 Constitutional: GEN: NAD Head: atraumatic Eyes: EOMI Ears: External ears are ec2 normal. CV: regular rate LUNGS: no respiratory distress, scattered wheezes noted throughout all lung morales. ABD: non-distended SKIN: no evidence of rashes MSK: no evidence of trauma Vital Signs: 15:00 BP 134 / 81; Pulse 110; Resp 20; Temp 98.4; Pulse Ox 95% ; Weight 108.86 kg; Height 5 iw ft. 11 in. ; 15:41 BP 131 / 80; Pulse 99; Resp 18; Pulse Ox 99% on R/A; mb9 15:00 Body Mass Index 33.47 (108.86 kg, 180.34 cm) iw MDM: 14:57 Medical Screening Exam initiated ec2 15:48 Data reviewed: vital signs. ED course: Patient arrives today for evaluation of ec2 difficulty breathing. Examination remarkable for pulmonary findings as above. Lab work unrevealing. Chest x-ray independently reviewed and interpreted by me, shows no focal consolidation. Presentation consistent with asthma exacerbation. Will prescribe the patient steroids as well as albuterol inhaler as he has been out of his medications for several weeks. Return precautions given.. 07/22 15:09 Order name: CBC with Diff; Complete Time: 15:47 ec2 07/22 15:09 Order name: BMP; Complete Time: 15:47 ec2 07/22 15:09 Order name: Influenza Screen (a \T\ B); Complete Time: 15:55 ec2 07/22 15:09 Order name: SARS RAPID; Complete Time: 15:55 ec2 07/22 15:09 Order name: CXR XRAY; Complete Time: 15:47 ec2 07/22 15:25 Order name: IV Saline Lock; Complete Time: 15:25 mb9 Administered Medications: 15:18 Drug: DuoNeb Nebulize (3:1) (2.5 mg - 0.5 mg) 3 ml Nebulizer once Route: Nebulizer; mb9 15:41 Follow up: Response: No adverse reaction mb9 15:20 Drug: MethylPrednisoLONE IVP 125 mg IVP once Route: IVP; Site: right antecubital; mb9 15:41 Follow up: Response: No adverse reaction mb9 15:26 Drug: Magnesium Sulfate IVPB 2 grams IVPB once over 2 hrs Route: IVPB; Infused Over: 2 mb9 hrs; Site: right antecubital; 15:41 Follow up: Response: No adverse reaction; IV Status: Completed infusion; IV stopped per mb9 pt request Disposition Summary: 07/22/24 15:55 Discharge Ordered Notes: Location: Home ec2 Condition: Stable ec2 Diagnosis - Moderate persistent asthma with (acute) exacerbation ec2 Followup: ec2 - With: Private Physician - When: - Reason: Re-evaluation by your physician Discharge Instructions: - Discharge Summary Sheet ec2 - Asthma, Adult ec2 Forms: - Medication Reconciliation Form ec2 - Antibiotic Education ec2 - Prescription Opioid Use ec2 - Patient Portal Instructions ec2 - Leadership Thank You Letter ec2 Prescriptions: - albuterol sulfate 90 mcg/actuation Inhalation HFA Aerosol Inhaler - inhale 4 puff INHALATION route every 4 to 6 hours as needed for shortness of ec2 breath or wheezing; do not exceed 16 puffs per 24 hrs; 1 unit; Refills: 0, Product Selection Permitted - Prednisone 20 mg Oral Tablet - take 2 tablets ORAL route once daily for 5 days; 10 tablet; Refills: 0, Product ec2 Selection Permitted Signatures: Dispatcher [employer] Beba Mcginnis RN RN iw Shalini, Lin Rodriguez RN RN mb9 Yonny Lenz MD MD ec2
--- NOTE | 2024-07-22 15:55 | ER ---
Nurse's Notes [facility] Name: Kole Villela Age: 23 yrs Sex: Male : 2000 Arrival Date: 07/22/2024 Time: 14:55 Bed 7 Private MD: Diagnosis: Moderate persistent asthma with (acute) exacerbation Presentation: 07/22 15:00 Chief complaint: Patient states: can't breathe since this morning , I have asthma, ran iw out of inhaler due to insurance. Coronavirus screen: At this time, the client does not indicate any symptoms associated with coronavirus-19. Ebola Screen: No symptoms or risks identified at this time. Initial Sepsis Screen: Does the patient meet any 2 criteria? No. Patient's initial sepsis screen is negative. Does the patient have a suspected source of infection? No. Patient's initial sepsis screen is negative. Risk Assessment: Do you want to hurt yourself or someone else? Patient reports no desire to harm self or others. Onset of symptoms was July 22, 2024. 15:00 Method Of Arrival: Ambulatory iw 15:00 Acuity: STEPHANIE 4 iw 15:00 Acuity: STEPHANIE 3 iw Historical: - Allergies: 15:01 Iodine; iw - Home Meds: 15:04 ProAir RespiClick inhalation [Active]; mb9 - PMHx: 15:01 Anxiety; Asthma; Bipolar disorder; eczema; iw - PSHx: 15:04 None; mb9 - Immunization history:: Adult Immunizations not up to date. - Infectious Disease History:: Denies. - Social history:: Smoking status: Reported history of juuling and/or vaping. Screenin:04 [facility] ED Fall Risk Assessment (Adult) History of falling in the last 3 months, mb9 including since admission No falls in past 3 months (0 pts) Confusion or Disorientation No (0 pts) Intoxicated or Sedated No (0 pts) Impaired Gait No (0 pts) Mobility Assist Device Used No (0 pt) Altered Elimination No (0 pt) Score/Fall Risk Level 0 - 2 = Low Risk Oriented to surroundings, Maintained a safe environment, Educated pt \T\ family on fall prevention, incl call for assistance when getting out of bed. Abuse screen: Denies threats or abuse. Nutritional screening: No deficits noted. Tuberculosis screening: No symptoms or risk factors identified. Assessment: 15:07 General: Appears uncomfortable, Behavior is cooperative. Pain: Denies pain. Neuro: mb9 Gupta Agitation-Sedation Scale (RASS): 0 - Alert and Calm Level of Consciousness is awake, alert, obeys commands, Oriented to person, place, time, situation, Appropriate for age. Cardiovascular: Patient's skin is warm and dry. Respiratory: Airway is patent Respiratory effort is even, unlabored, Respiratory pattern is regular, symmetrical, Breath sounds with wheezes bilaterally. Respiratory: Reports shortness of breath at rest. GI: No signs and/or symptoms were reported involving the gastrointestinal system. : No signs and/or symptoms were reported regarding the genitourinary system. EENT: No signs and/or symptoms were reported regarding the EENT system. Derm: Skin is pink, warm \T\ dry. Musculoskeletal: Range of motion: intact in all extremities. 15:40 Reassessment: IV removed per pt request and pt requests magnesium to stop. Pt states mb9 his IV hurts. Vital Signs: 15:00 BP 134 / 81; Pulse 110; Resp 20; Temp 98.4; Pulse Ox 95% ; Weight 108.86 kg; Height 5 iw ft. 11 in. ; 15:41 BP 131 / 80; Pulse 99; Resp 18; Pulse Ox 99% on R/A; mb9 15:00 Body Mass Index 33.47 (108.86 kg, 180.34 cm) ED Course: 14:56 Patient arrived in ED. ra3 14:57 Yonny Lenz MD is Attending Physician. ec2 15:01 Triage completed. iw 15:02 Arm band placed on. iw 15:03 Lin Loya, RIC is Primary Nurse. mb9 15:04 Bed in low position. Call light in reach. Side rails up X 1. Provided Education on: mb9 press call light if needing anything. Client placed on continuous cardiac and pulse oximetry monitoring. NIBP monitoring applied. 15:15 Initial lab(s) drawn, by me, sent to lab. Inserted saline lock: 18 gauge in right mb9 antecubital area, using aseptic technique. Blood collected. Flushed with 10 mL NS. 15:25 SARS RAPID Sent. mb9 15:25 Influenza Screen (a \T\ B) Sent. 9 15:25 BMP Sent. mb9 15:25 CBC with Diff Sent. mb9 15:27 CXR XRAY In Process Unspecified. EDMS 15:41 No provider procedures requiring assistance completed. IV discontinued, intact, mb9 bleeding controlled, No redness/swelling at site. Pressure dressing applied. Administered Medications: 15:18 Drug: DuoNeb Nebulize (3:1) (2.5 mg - 0.5 mg) 3 ml Nebulizer once Route: Nebulizer; mb9 15:41 Follow up: Response: No adverse reaction mb9 15:20 Drug: MethylPrednisoLONE IVP 125 mg IVP once Route: IVP; Site: right antecubital; mb9 15:41 Follow up: Response: No adverse reaction mb9 15:26 Drug: Magnesium Sulfate IVPB 2 grams IVPB once over 2 hrs Route: IVPB; Infused Over: 2 mb9 hrs; Site: right antecubital; 15:41 Follow up: Response: No adverse reaction; IV Status: Completed infusion; IV stopped per mb9 pt request Medication: 15:04 VIS not applicable for this client. mb9 Intake: Outcome: 15:55 Discharge ordered by . tylor 16:03 Discharged to home ambulatory, mb9 16:03 Condition: stable 16:03 Discharge instructions given to patient, Instructed on discharge instructions, follow up and referral plans. Demonstrated understanding of instructions, follow-up care, medications, Prescriptions given X 2, 16:03 Patient left the ED. mb9 Signatures: Dispatcher [employer] Beba Mcginnis RN RN iw Wilkerson, Mary Beth, RN RN mb9 Yonny Lenz MD MD ec2 Alva, Ruby 3
[2024-07-22 16:27] VITALS: TEMP 98.4
[2024-07-22 16:28] VITALS: BP 131/80; O2SAT 99
== END 2024-07-22 16:03 | disposition home or self-care (01) ==
LOC: ER 14:55
DX: J45.41 Moderate persistent asthma with (acute) exacerbation (principal); Z11.52 Encounter for screening for COVID-19
CPT/HCPCS: 36415; 71045; 80048; 85025; 87804; 87811; 96374; 96375; 99285; J2919; J3475; J7613; J7644

== ENCOUNTER 2025-05-16 10:56 | Emergency (ER) | payer OTHER, SELFPAY ==
[2025-05-16] MEDS ORDERED: IPRATROPIUM BROM 0.5MG/2.5ML ONE (11:03)
[2025-05-16] MEDS ORDERED: ALBUTEROL 2.5 MG/3 ML NEB SOL ONE ×2 (11:03→11:04)
--- NOTE | 2025-05-16 12:23 | RAD REPORT ---
EXAMINATION: ONE VIEW CHEST XR CLINICAL INDICATION: Male, 24 years old.,Asthma;Cough TECHNIQUE: Frontal chest projection is submitted. Examination is limited by patient positioning and t echnique. COMPARISON: 07/22/2024 FINDINGS: The lungs are well inflated and clear. No pneumothorax or sizable effusion. The heart is normal in s ize. Mediastinal contours are unremarkable. IMPRESSION: No acute intrathoracic abnormalities.
--- NOTE | 2025-05-16 12:27 | EDPHYS ---
Physician Documentation [facility] Name: Kole Villela Age: 24 yrs Sex: Male : 2000 Arrival Date: 05/16/2025 Time: 10:56 Bed 12 Private MD: ED Physician Carlton Sorenson HPI: 05/16 11:08 This 24 yrs old Male presents to ER via Ambulatory with complaints of Asthma dr5 Exacerbation. 11:08 The patient presents to the emergency department with wheezing, Current therapy: dr5 albuterol inhaler. Onset: The symptoms/episode began/occurred acutely. 11:09 Patient is a 24-year-old male with history of anxiety, asthma, bipolar disorder coming dr5 in with shortness of breath that started this morning. Patient reports he took albuterol inhaler x 1 and ran out this morning. Patient denies recent steroid use and last asthma attack was approximately 3 months ago. Patient denies fever, chest pain, abdominal pain, nausea, vomiting, or diarrhea. Historical: - Allergies: 11:07 Iodine; iw - PMHx: 11:07 Anxiety; Asthma; Bipolar disorder; eczema; iw - PSHx: 11:07 None; iw - Immunization history:: Adult Immunizations not up to date. - Infectious Disease History:: Denies. - Social history:: Smoking status: Reported history of juuling and/or vaping. ROS: 11:09 Constitutional: as per hpi dr5 Exam: 11:09 Constitutional: This is a well developed, well nourished patient who is awake, alert, dr5 and in no acute distress. Head/Face: Normocephalic, atraumatic. Eyes: Pupils equal round and reactive to light, extra-ocular motions intact. Lids and lashes normal. Conjunctiva and sclera are non-icteric and not injected. Cornea within normal limits. Periorbital areas with no swelling, redness, or edema. Neck: Trachea midline, no thyromegaly or masses palpated, and no cervical lymphadenopathy. Supple, full range of motion without nuchal rigidity, or vertebral point tenderness. No Meningismus. Chest/axilla: Normal chest wall appearance and motion. Nontender with no deformity. No lesions are appreciated. Cardiovascular: Regular rate and rhythm with a normal S1 and S2. Normal PMI, no JVD. No pulse deficits. Abdomen/GI: Soft, non-tender, non-distended Back: No spinal tenderness. No costovertebral tenderness. Full range of motion. Skin: Warm, dry with normal turgor. Normal color with no rashes, no lesions, and no evidence of cellulitis. MS/ Extremity: Pulses equal, no cyanosis. Neurovascular intact. Full, normal range of motion. Neuro: Awake and alert, GCS 15, oriented to person, place, time, and situation. Cranial nerves II-XII grossly intact. Motor strength 5/5 in all extremities. Sensory grossly intact. Cerebellar exam normal. Normal gait. 11:09 Respiratory: moderate respiratory distress is noted, Respirations: labored breathing, that is moderate, Breath sounds: wheezing: expiratory that is moderate, is heard diffusely, Vital Signs: 11:06 BP 122 / 88; Pulse 87; Resp 19; Temp 98; Pulse Ox 100% on R/A; Weight 113.4 kg; Height iw 5 ft. 11 in. ; Pain 0/10; 11:06 Body Mass Index 34.87 (113.40 kg, 180.34 cm) iw 11:06 Pain Scale: Adult iw MDM: 11:02 Medical Screening Exam initiated dr5 11:11 ED course: Evaluated patient in triage with triage nurse. Will give DuoNeb and steroid dr5 injection as well as chest x-ray to rule out pneumonia. 17:26 Differential diagnosis: acute asthma, reactive airway, URI. Antibiotic administration: dr5 Not indicated, the patient does not have an appreciated infiltrate, the patient's primary pathology is reactive airway disease. Data reviewed: vital signs, nurses notes, radiologic studies, plain films. Consideration of Admission/Observation Escalation of care including admission/observation considered. Escalation considered patient's symptoms did not resolve. I considered the following discharge prescriptions or medication management in the emergency department I discussed and recommended Over The Counter medications, Medications were administered in the Emergency Department. See MAR. Independent interpretation of the following test(s) in the Emergency Department X-Ray: My interpretation is Independent termination of x-ray did not reveal pneumonia. Care significantly affected by the following chronic conditions: Anxiety, asthma, bipolar disorder. Care significantly affected by the following Social Determinants of Health: Poor access to healthcare and/or lack of insurance, Poor access to transportation, Problems related to employment. Counseling: I had a detailed discussion with the patient and/or guardian regarding the historical points, exam findings, and any diagnostic results supporting the discharge/admit diagnosis, the presence of at least one elevated blood pressure reading (>120/80) during this emergency department visit, radiology results, the need for outpatient follow up, for definitive care, a family practitioner, a pharmacy helper, to return to the emergency department if symptoms worsen or persist or if there are any questions or concerns that arise at home. Medication response: albuterol nebulizer treatment(s) relieved the patient's symptoms. The patient is no longer wheezing. Response to treatment: the patient's symptoms have resolved after treatment, the patient's condition has returned to base line, the patient is now symptom free. Special discussion: I have referred the patient to see his PCP for further evaluation of high blood pressure. I discussed with the patient/guardian in detail that at this point there is no indication for admission to the hospital. It is understood, however, that if the symptoms persist or worsen the patient needs to return immediately for re-evaluation. Based on the history and exam findings, there is no indication for further emergent testing or inpatient evaluation. I discussed with the patient/guardian the need to see the pharmacy helper for further evaluation of the symptoms. 17:29 ED course: Patient is feeling back to normal. No shortness of breath noted. Will give dr5 patient albuterol inhaler to take at home as needed as well as steroid Dosepak. Recommend patient follow pulmonary. All question answered. Strict ER precautions given.. 05/16 11:08 Order name: Chest Single View XRAY; Complete Time: 12:27 dr5 Administered Medications: 11:18 Drug: DuoNeb Nebulize (3:1) (2.5 mg - 0.5 mg) 6 ml Nebulizer once Route: Nebulizer; iw 12:10 Follow up: Response: No adverse reaction; Wheezing diminished iw 11:18 Drug: Dexamethasone IM 10 mg IM once Route: IM; Site: right deltoid; iw 12:10 Follow up: Response: No adverse reaction; Marked relief of symptoms iw Disposition Summary: 05/16/25 12:27 Discharge Ordered Notes: Location: Home dr5 Condition: Stable dr5 Diagnosis - Unspecified asthma with (acute) exacerbation dr5 Followup: dr5 - With: Emergency Department - When: As needed - Reason: Worsening of condition Followup: dr5 - With: Private Physician - When: 1 - 2 days - Reason: Recheck today's complaints, Continuance of care, Re-evaluation by your physician Discharge Instructions: - Discharge Summary Sheet dr5 - Asthma, Adult dr5 Forms: - Work release form dr5 - Medication Reconciliation Form dr5 - Patient Portal Instructions dr5 - Leadership Thank You Letter dr5 Prescriptions: - albuterol sulfate 90 mcg/actuation Inhalation HFA Aerosol Inhaler - inhale 1 puff INHALATION route 4 times per day As needed; 2 application; dr5 Refills: 0, Product Selection Permitted - Prednisone 20 mg Oral Tablet - take 2 tablets ORAL route once daily for 5 days; 10 tablet; Refills: 0, Product dr5 Selection Permitted Addendum: 05/18/2025 13:27 Co-signature as Attending Physician, Carlton Sorenson MD I agree with the assessment and c oconnell plan of care. Signatures: Dispatcher [employer] Carlton Hammond MD MD cha Williams, Irene, RN RN Aristides Canseco, INORGANIC CHEMICAL TECHNICIAN-C INORGANIC CHEMICAL TECHNICIAN-Cdr5
--- NOTE | 2025-05-16 12:27 | ER ---
Nurse's Notes [facility] Name: Kole Villela Age: 24 yrs Sex: Male : 2000 Arrival Date: 05/16/2025 Time: 10:56 Bed 12 Private MD: Diagnosis: Unspecified asthma with (acute) exacerbation Presentation: 05/16 11:06 Chief complaint: Patient states: asthma exacerbation started today , took inhaler this iw morning. Coronavirus screen: At this time, the client does not indicate any symptoms associated with coronavirus-19. Ebola Screen: No symptoms or risks identified at this time. Initial Sepsis Screen: Does the patient meet any 2 criteria? No. Patient's initial sepsis screen is negative. Does the patient have a suspected source of infection? No. Patient's initial sepsis screen is negative. Risk Assessment: Do you want to hurt yourself or someone else? Patient reports no desire to harm self or others. Onset of symptoms was May 16, 2025. 11:06 Method Of Arrival: Ambulatory iw 11:06 Acuity: STEPHANIE 4 iw Triage Assessment: 11:08 General: Appears in no apparent distress. Behavior is calm, cooperative. Pain: Denies iw pain. Respiratory: Airway is patent Respiratory effort is even, unlabored, Respiratory pattern is regular, symmetrical. Historical: - Allergies: 11:07 Iodine; iw - PMHx: 11:07 Anxiety; Asthma; Bipolar disorder; eczema; iw - PSHx: 11:07 None; iw - Immunization history:: Adult Immunizations not up to date. - Infectious Disease History:: Denies. - Social history:: Smoking status: Reported history of juuling and/or vaping. Screenin:08 [facility] ED Fall Risk Assessment (Adult) History of falling in the last 3 months, iw including since admission No falls in past 3 months (0 pts) Confusion or Disorientation No (0 pts) Intoxicated or Sedated No (0 pts) Impaired Gait No (0 pts) Mobility Assist Device Used No (0 pt) Altered Elimination No (0 pt) Score/Fall Risk Level 0 - 2 = Low Risk Oriented to surroundings, Maintained a safe environment. Abuse screen: Denies threats or abuse. Nutritional screening: No deficits noted. Tuberculosis screening: No symptoms or risk factors identified. Assessment: 11:06 General: Appears in no apparent distress. Behavior is calm, cooperative. Pain: Denies iw pain. Neuro: Level of Consciousness is awake, alert, obeys commands, Oriented to person, place, time, situation, Appropriate for age Moves all extremities. Full function. Cardiovascular: Patient's skin is warm and dry. Respiratory: Reports shortness of breath at rest on exertion Respiratory effort is even, labored, Respiratory pattern is regular, symmetrical. GI: Abdomen is non-distended. Derm: Skin is intact, is healthy with good turgor. Musculoskeletal: Range of motion: intact in all extremities. Vital Signs: 11:06 BP 122 / 88; Pulse 87; Resp 19; Temp 98; Pulse Ox 100% on R/A; Weight 113.4 kg; Height iw 5 ft. 11 in. ; Pain 0/10; 11:06 Body Mass Index 34.87 (113.40 kg, 180.34 cm) iw 11:06 Pain Scale: Adult iw ED Course: 11:01 Patient arrived in ED. cj3 11:02 Aristides Mo FNP-C is PHCP. dr5 11:02 Carlton Sorenson MD is Attending Physician. dr5 11:07 Triage completed. iw 11:07 Arm band placed on. iw 11:07 Patient has correct armband on for positive identification. iw 11:09 No provider procedures requiring assistance completed. iw 11:35 Chest Single View XRAY In Process Unspecified. EDMS 12:35 Patient did not have IV access during this emergency room visit. iw 12:40 Beba Reyes, RN is Primary Nurse. iw Administered Medications: 11:18 Drug: DuoNeb Nebulize (3:1) (2.5 mg - 0.5 mg) 6 ml Nebulizer once Route: Nebulizer; iw 12:10 Follow up: Response: No adverse reaction; Wheezing diminished iw 11:18 Drug: Dexamethasone IM 10 mg IM once Route: IM; Site: right deltoid; iw 12:10 Follow up: Response: No adverse reaction; Marked relief of symptoms iw Medication: 11:09 VIS not applicable for this client. iw Outcome: 12:27 Discharge ordered by . dr5 12:39 Discharged to home ambulatory, iw 12:39 Condition: good 12:39 Discharge instructions given to patient, Instructed on discharge instructions, follow up and referral plans. medication usage, Demonstrated understanding of instructions, follow-up care, medications, Prescriptions given X 2, 12:40 Patient left the ED. iw Signatures: Dispatcher [employer] Beba Mcginnis RN RN iw Aristides Mo, DIRECTOR [employer]-C DIRECTOR [employer]-Cdr5 Eve Joyner cj3 Corrections: (The following items were deleted from the chart) 11:07 11:06 BP 122 / 88; Pulse 87bpm; Resp 19bpm; Pulse Ox 100% RA; Temp 98F; iw iw 17:58 12:39 Discharge instructions given to patient, Instructed on discharge instructions, iw follow up and referral plans. medication usage, Demonstrated understanding of instructions, follow-up care, medications, Prescriptions given X 1, iw
[2025-05-16 14:57] VITALS: BP 122/88; TEMP 98; O2SAT 100
== END 2025-05-16 12:40 | disposition home or self-care (01) ==
LOC: ER 10:56
DX: J45.901 Unspecified asthma with (acute) exacerbation (principal)
CPT/HCPCS: 71045; 96372; 99284; J7613 ×2; J7644; J1100